=== PATIENT | female | born 1990 | race Caucasian/White ===

== ENCOUNTER 2020-09-15 12:30 | Emergency (ER) | payer OTHER ==
[2020-09-15] MEDS ORDERED: Lidocaine 1% (PF) 30 ML VIAL ONE (12:49)
[2020-09-15] MEDS ORDERED: Boostrix 0.5 ML (Tdap) VIAL ONE (13:15)
== END 2020-09-15 13:25 | disposition home or self-care (01) ==
LOC: NAV ERS 12:30
DX: S61.211A Laceration without foreign body of left index finger without damage to nail, initial encounter (principal); W45.8XXA Other foreign body or object entering through skin, initial encounter
CPT/HCPCS: 12001; 90471; 90715; J2001

== ENCOUNTER 2024-11-27 05:20 | Emergency (ER) | payer OTHER ==
[2024-11-27 05:48] LABS: #Basophils 0.1 thou/uL (0.0-0.2); #Eosinophils 0.5 thou/uL (0.0-0.7); #Lymphocytes 4.7 thou/uL (1.20-3.40); #Monocytes 0.7 thou/uL (0.11-0.59); #Neutrophils 4.9 thou/uL (1.40-6.50); %Basophils 0.9 % (0.0-1.0); %Eosinophils 4.5 % (0.0-10.0); %Lymphocytes 43.3 % (21.0-51.0); %Monocytes 6.1 % (0.0-10.0); %Neutrophils 45.2 % (42.0-75.0); Hematocrit 41.6 % (36.0-47.0); Hemoglobin 13.6 g/dL (12.0-16.0); Mean Corpuscular Hemoglobin 26.8 pg (27.0-31.0); Mean Corpuscular Volume 82.3 fl (78.0-98.0); Platelet Count 527 10x3/uL (130-400); Red Blood Cell (RBC) Count 5.06 mill/uL (4.20-5.40); White Blood Cell (WBC) Count 10.9 10x3/uL (4.8-10.8)
[2024-11-27] MEDS ORDERED: Ondansetron PF 4 MG/2 ML Vial ONE (05:51)
[2024-11-27 06:05] LABS: ALT (SGPT) 15 U/L (Less than 34); AST (SGOT) 26 U/L (11-34); Albumin 3.3 g/dL (3.1-4.5); Alkaline Phosphatase 161 U/L (40-110); Anion Gap 19 mmol/L (10-20); BUN (Urea Nitrogen) 10 mg/dL (7.0-18.7); Bilirubin, Total 0.3 mg/dL (0.3-1.2); Calc. Creatinine Clearance 0 mL/min (70-130); Calcium 9.1 mg/dL (7.8-10.44); Carbon Dioxide 19 mmol/L (22-29); Chloride 106 mmol/L (98-107); Globulin 3.8 g/dL (2.4-3.5); Glucose 87 mg/dL (70-105); Lipase 8 U/L (8-78); Magnesium 1.9 mg/dL (1.6-2.6); Potassium 4.0 mmol/L (3.5-5.1); Sodium 140 mmol/L (136-145)
[2024-11-27 06:07] LABS: Troponin I Less than 0.010 ng/mL (< 0.028)
[2024-11-27] MEDS ORDERED: hydrALAZINE 20 MG/ML VIAL ONE ×2 (06:59→07:48)
[2024-11-27 07:02] LABS: Glucose, Urine (Dipstick) Negative (Negative); Leukocyte Small (Negative); Protein, Urine (Dipstick) Negative (Neg-Trace); Specific Gravity, Urine 1.010 (1.005-1.030)
[2024-11-27 07:08] LABS: CAUTI Indications for Culture Dysuria,urgency,freq
[2024-11-27 07:09] LABS: Bacteria/HPF 1+ HPF (None Seen); Urine Culture Reflex Yes Yes
[2024-11-27] MEDS ORDERED: Mag-Al Plus 1200/1200/120 MG (30 mL) UDCUP ONE (08:17)
[2024-11-27] MEDS ORDERED: Lidocaine Viscous Sol 2% 15 ml UD Cup ONE (08:18)
[2024-11-27] MEDS ORDERED: Iopamidol 370 76% 100 ML VIAL ONE (09:00)
== END 2024-11-27 10:57 | disposition home or self-care (01) ==
LOC: NAV ERS 05:20
DX: O16.5 Unspecified maternal hypertension, complicating the puerperium (principal); O99.893 Other specified diseases and conditions complicating puerperium; R10.13 Epigastric pain
CPT/HCPCS: 74177; 80053; 81001; 83605; 83690; 83735; 83880; 84484; 85025; 87086; 93005; 94760; 96374; 96375; 96376; J0360; J2405; J3010; Q9967